=== PATIENT | male | born 1955 | race Caucasian/White ===

== ENCOUNTER 2018-01-29 18:20 | Emergency (ER) | payer OTHER ==
[~2018-01-29] VITALS: Ht 182.9 cm; Wt 79.8 kg
[2018-01-29] MEDS ORDERED: OXYC-323 PO (20:47)
--- NOTE | 2018-01-29 20:49 | PHYS DOC ---
Past Medical History Past Medical History: Arthritis, Cancer Additional Past Medical Histor: LEUKEMIA Past Surgical History: Appendectomy, Other Additional Past Surgical Histo: COLON RESECTION, BREAST CYST Alcohol Use: None Drug Use: Marijuana Adult General Chief Complaint Chief Complaint: OTHER COMPLAINTS [facility] HPI Patient is a 62 year old male who presents with bone pain because he has chronic leukemia. Review of Systems Review of Systems Constitutional: Denies fever or chills [] Eyes: Denies change in visual acuity, redness, or eye pain [] HENT: Denies nasal congestion or sore throat [] Respiratory: Denies cough or shortness of breath [] Cardiovascular: No additional information not addressed in HPI [] GI: Denies abdominal pain, nausea, vomiting, bloody stools or diarrhea [] : Denies dysuria or hematuria [] Musculoskeletal: Bone pain from head to toe. Denies back pain or joint pain [] Integument: Denies rash or skin lesions [] Neurologic: Denies headache, focal weakness or sensory changes [] Endocrine: Denies polyuria or polydipsia [] All other systems were reviewed and found to be within normal limits, except as documented in this note. Current Medications Current Medications Current Medications Medications (Trade) Dose Ordered Sig/Cathi Start Time Stop Time Status Last Admin Dose Admin Oxycodone/ Acetaminophen (Percocet 5/325) 1 tab 1X ONCE 01/29/18 21:15 01/29/18 21:16 DC 01/29/18 20:58 1 TAB Allergies Allergies Allergies Coded Allergies Type Severity Reaction Last Updated Verified fentanyl Allergy Severe 01/29/18 Yes meperidine Allergy Severe Rash 01/29/18 Yes morphine Allergy Severe Rash 01/29/18 Yes temazepam Allergy Severe Shortness of Air 01/29/18 Yes Sulfa (Sulfonamide Antibiotics) Adverse Reaction Intermediate 01/29/18 Yes ibuprofen Adverse Reaction Intermediate Nausea 01/29/18 Yes Physical Exam Physical Exam Constitutional: Well developed, well nourished, no acute distress, non-toxic appearance. [] HENT: Normocephalic, atraumatic, bilateral external ears normal, oropharynx moist, no oral exudates, nose normal. [] Eyes: PERRLA, EOMI, conjunctiva normal, no discharge. [] Neck: Normal range of motion, no tenderness, supple, no stridor. [] Cardiovascular:Heart rate regular rhythm, no murmur [] Lungs & Thorax: Bilateral breath sounds clear to auscultation [] Abdomen: Bowel sounds normal, soft, no tenderness, no masses, no pulsatile masses. [] Skin: Warm, dry, no erythema, no rash. [] Back: No tenderness, no CVA tenderness. [] Extremities: No tenderness, no cyanosis, no clubbing, ROM intact, no edema. [] Neurologic: Alert and oriented X 3, normal motor function, normal sensory function, no focal deficits noted. [] Psychologic: Affect normal, judgement normal, mood normal. [] Current Patient Data Vital Signs Vital Signs Date Time Temp Pulse Resp B/P (MAP) Pulse Ox O2 Delivery O2 Flow Rate FiO2 01/29/18 21:00 77 20 135/76 (95) 97 Room Air 01/29/18 19:10 98.0 98.0 EKG EKG [] Radiology/Procedures Radiology/Procedures [] Course & Med Decision Making Course & Med Decision Making Patient is a 62 year old male who presents with bone pain because he has chronic leukemia. Patient states that he goes to [facility] for his cancer treatment. Patient states that his cancer doctors will no longer give him pain medication for his bone pain because of his leukemia area patient states that they will not give him pain medication because his son overdosed him on Valium, Xanax, oxycodone and then dumped him off at [facility] and stated to staff that he try to kill himself and overdosed on purpose. The patient states that the son then went back to his home and stole his oxycodone and told them. Patient states he's been trying to only take Advil or Aleve that the pain is too great. Patient states today he did help his nephew move, called a bunch of branches out of his yard, and carried some light boxes for his nephew. Patient states that he takes Sprycel 50mg and Lyrica. Patient states that he does also take marijuana to help with his bipolar but does not take any medication for his bipolar or ADD. Patient states he does not drink any alcohol. Patient states he did have spinal damage T7-L5 from when he worked. Patient states he also has a history of sciatica. Patient rates his pain an 8 out of 10 and feels like somebody has a vice around office bones from head to toe. Dr. Varghese did examine this patient. Patient is only here for pain relief. Upon examination patient denies chest pain, shortness of air, numbness, tingling, nausea, vomiting, abdominal pain, headache, dizziness, urinary symptoms. And is given 1 Percocet here in the ED and sent home with a prescription of only 8 Percocet. This steady on his feet and walks with a cane. Patient is being discharged home in stable. He had Staff Physician Addendum: I was working in the ER during the course of this patient's visit. I was available for consultation as needed, I did briefly evaluate this patient. Patient has no focal bony tenderness is diffuse pain he is requesting pain medication we will give him a short course and advised to follow-up with primary care doctor. we did review ktracs. [] Dragon Disclaimer Dragon Disclaimer This electronic medical record was generated, in whole or in part, using a voice recognition dictation system. Departure Departure Impression: Primary Impression: Pain Disposition: 01 HOME, SELF-CARE Condition: STABLE Referrals: UNKNOWN PCP NAME (PCP) Patient Instructions: Chronic Pain, Chronic Pain Management Additional Instructions: Take medications as prescribed. Follow up with primary care. Scripts Oxycodone/Apap 5-325 (PERCOCET 5-325 MG TABLET) 1 Each Tablet 1 TAB PO PRN Q6HRS PRN for PAIN, #8 TAB 0 Refills Prov: ESSENCE ISLAS APRN 01/29/18 ESSENCE ISLAS APRN Jan 29, 2018 20:49 MIKE VARGHESE MD Jan 30, 2018 04:11
[2018-01-29 21:00] VITALS: BP 135/76
[2018-01-29] MEDS ORDERED: oxyCODONE/APAP 5/325 1 TAB TABLET PO ONE (21:15)
== END 2018-01-29 21:00 | disposition home or self-care (01) ==
LOC: ER 18:20
DX: M89.8X9 Other specified disorders of bone, unspecified site (principal); C95.10 Chronic leukemia of unspecified cell type not having achieved remission; F31.9 Bipolar disorder, unspecified; F98.8 Other specified behavioral and emotional disorders with onset usually occurring in childhood and adolescence; Z88.1 Allergy status to other antibiotic agents; Z88.2 Allergy status to sulfonamides; Z88.4 Allergy status to anesthetic agent; Z88.5 Allergy status to narcotic agent; Z88.8 Allergy status to other drugs, medicaments and biological substances
CPT/HCPCS: 99284